=== PATIENT | female | born 1990 | race Caucasian/White ===

== ENCOUNTER → 2016-09-29 | Outpatient (CLI) | payer OTHER ==
--- NOTE | 2016-09-29 10:43 | US ---
EXAMINATION TYPE: US OB <=14 wks transvag DATE OF EXAM: 09/29/2016 10:20 AM COMPARISON: NONE CLINICAL HISTORY: with brown discharge today EXAM PERFORMED: Transvaginal (TV) and Transabdominal (TA) endovaginal scanning performed for better evaluation of the . EXAM MEASUREMENTS: GESTATIONAL AGE / DATING Physician Established: not established Dates by LMP: (8 weeks/4 days) EDC: 05/07/2017 Dates by First Scan: no prior Dates by Current Scan : (8 weeks/0 days) EDC: 05/11/2017 MATERNAL ANATOMY Uterus: 8.1 x 6.7 x 5.2 cm Right Ovary: 3.8 x 3.6 x 3.4 cm Left Ovary: 1.9 x 1.2 x 2.5 cm Post CDS / Adnexa: rt cyst Presence of free fluid: yes TECHNOLOGIST IMPRESSION: Presence of corpus luteal cyst: yes Rt, 3.3 x 2.8 x 3.1 cm Presence of subchorionic bleed: small left and inferior to sac1.8 x 0.8 x 1.9 cm Grayscale, color Doppler imaging performed of the right ovary and uterus, color flow is present to th e right ovary and uterus. GESTATION / SURVEY CRL: 1.5 cm (8 weeks/0 days) MSD: 1.5 (7 weeks/6 days) Yolk Sac (normal less than 6mm): 4mm Heart Rate: 168 bpm Rhythm: Normal IUP: Viable IUP chorion and amnion have not fused. Date of LMP:07/31/2016 IMPRESSION: Single viable intrauterine corresponding to ultrasound age 8 weeks 0 days with estimated da te of delivery April. Subchorionic hemorrhage is suspected. Additional findings above.
== END | disposition home or self-care (01) ==
LOC: RADUSWWP 09:50
PROVIDERS: ATTEND Obstetrics & Gynecology
DX: O46.91 Antepartum hemorrhage, unspecified, first trimester (principal); Z3A.00 Weeks of gestation of pregnancy not specified
CPT/HCPCS: 76801; 76817